=== PATIENT | female | born 1975 | race Caucasian/White ===

== ENCOUNTER 2022-06-03 12:52 | Emergency (ER) | payer MEDICARE, BC, SELFPAY ==
[2022-06-03 13:21] VITALS: BP 113/79; PULSE 110; RESP 14; TEMP 37.1; O2SAT 94; BMI 18.5
--- NOTE | 2022-06-03 14:00 | CRLHL7_ITS ---
For Patients: As a result of the Cures Act, medical imaging exams and procedure reports are released immediately into your electronic medical record. You may view this report before your referring provider. If you have questions, please contact your health care provider. INDICATION: Fall, left anterior upper rib pain. COMPARISON: Chest and rib radiographs date 11/2020. TECHNIQUE: PA chest and left ribs, 4 images. FINDINGS: No focal consolidation, pleural effusion, or pneumothorax. Normal heart size and pulmonary vascularity. No displaced rib fracture identified. Chronic deformity of the distal left clavicle. IMPRESSION: 1. No acute cardiopulmonary findings. 2. No displaced rib fracture identified. Dictated by Lara Gallo MD @ 06/03/2022 2:38:46 PM (Electronically Signed)
--- NOTE | 2022-06-03 14:01 | ED_ITS ---
HPI - General Adult General Chief complaint: Rib Pain Stated complaint: broken ribs Time Seen by Provider: 06/03/22 13:15 History of Present Illness HPI narrative: This 46-year-old female comes in with left anterior rib pain. She states that she was leaning off of the edge of her bed trying to plug in her phone to charge it when she fell off of the bed and injured her left anterior ribs. She states that she has had rib fractures in the past because she has osteoporosis. She has been taking Fosamax but now has switched to IV treatment for her osteoporosis. She states that the pain was there initially and has worsened since then. Related Data Home Medications Medication Instructions Recorded Confirmed clonazepam 1 mg tablet mg 06/03/22 famotidine 20 mg tablet mg 06/03/22 fluoxetine 20 mg capsule mg 06/03/22 levothyroxine 25 mcg tablet mcg 06/03/22 quetiapine 100 mg tablet mg 06/03/22 trazodone 150 mg tablet mg 06/03/22 vaylar 06/03/22 Previous Rx's Medication Instructions Recorded ketorolac 10 mg tablet 10 mg PO TID 5 Days #15 tab 06/03/22 Allergies Allergy/AdvReac Type Severity Reaction Status Date / Time No Known Drug Allergies Allergy Verified 06/03/22 13:28 Review of Systems Status of ROS: Reports: 10 or more systems reviewed and unremarkable except as noted in History and below Narrative: Constitutional: No fevers, no weight gain or loss. Eyes: No discharge. No vision changes. HENT: No congestion, no sore throat, no ear pain. Cardiovascular: No palpitations. Left anterior rib pain as described above. Respiratory: No shortness of breath, no wheezes, no cough. Gastrointestinal: No abdominal pain, no vomiting, no diarrhea. Genitourinary: No dysuria, no hematuria. Musculoskeletal: Normal range of motion. Skin: No rashes, no pruritis. Neurological: No dizziness, weakness, sensory change, speech change. Endo/Heme/Allergies: No bruising or bleeding. No polydipsia. Pysch: no suicidality, no anxiety, no insomnia. All other systems reviewed and are negative. PFSH PFSH Social History Smoking Status: Former smoker Do you use any of these nicotine containing products: None Second hand tobacco smoke exposure: No How often do you have a drink containing alcohol: never How often do you have six or more drinks on one occasion: Never AUDIT-C Alcohol total score: 0 Non-prescribed substance use: denies use service: No Exam Narrative: Exam Narrative: Constitutional: Well-developed, well-nourished, no acute distress. HEENT: Normocephalic, atraumatic. Neck: Normal range of motion. Nontender. Supple. Heart: Regular. No murmurs. Normal rate. Intact distal pulses. Lungs: Clear to auscultation. No rhonchi, or rales. Left lateral anterior lower rib pain. There is no sign of external injury, that is no bruising or skin injury. Abdomen: Normal bowel sounds. Nontender. No rebound tenderness. Genitalia: Deferred. Back: No midline tenderness. Normal range of motion. Extremities: Normal range of motion. No injury. Skin: Intact. No rash. Warm. No erythema or pallor. Neurologic: No altered sensation. No weakness. Alert and oriented. Psychiatric: No suicidality. No anxiety or depression. No insomnia. Nursing notes and vitals signs are reviewed. Const: Vital Signs, click to edit/add: Vital Signs - 24 hr 06/03/22 13:21 06/03/22 15:08 Temperature 98.7 F Pulse Rate [Right Pulse Oximeter] 110 H 110 H Respiratory Rate 14 Blood Pressure [Ri ght Upper Arm] 113/79 84/54 L Pulse Oximetry 94 98 Course Vital Signs Vital signs: Initial Vital Signs Temperature 98.7 F 06/03/22 13:21 Temperature Source Temporal Artery Scan 06/03/22 13:21 Pulse Rate 110 H 06/03/22 13:21 Respiratory Rate 14 06/03/22 13:21 Blood Pressure 113/79 06/03/22 13:21 Blood Pressure Mean 90 06/03/22 13:21 Blood Pressure Position Sitting 06/03/22 13:21 Pulse Oximetry 94 06/03/22 13:21 Oxygen Delivery Method 06/03/22 13:21 Vital Signs Temperature 98.7 F 06/03/22 13:21 Pulse Rate 110 H 06/03/22 13:21 Respiratory Rate 14 06/03/22 13:21 Blood Pressure 113/79 06/03/22 13:21 Pulse Oximetry 94 06/03/22 13:21 Temperature 98.7 F 06/03/22 13:21 Pulse Rate 110 H 06/03/22 15:08 Respiratory Rate 14 06/03/22 13:21 Blood Pressure 84/54 L 06/03/22 15:08 Pulse Oximetry 98 06/03/22 15:08 Medical Decision Making MDM Narrative Medical decision making narrative: This patient comes in with rib pain as described above. X-ray of the chest and detail of the left ribs shows no sign of fracture or pneumothorax. The patient received a rib belt which brought some relief. Additionally she received a prescription for Toradol. Imaging Data Chest x-ray: Radiologist's impression: 1. No acute cardiopulmonary findings. 2. No displaced rib fracture identified. Discharge Plan Discharge Clinical Impression: Acute chest wall pain Patient Disposition: Home, Self-Care Condition: Unchanged Instructions: Chest Wall Pain (ED) Additional Instructions: Rib contusion. Take medication as needed and indicated. Wear rib belt also has preferred. Follow up with MD as needed. Prescriptions: New ketorolac 10 mg tablet 10 mg PO TID 5 Days Qty: 15 0RF No Action clonazepam 1 mg tablet 0RF Label Comments: TAKE 1 TABLET BY MOUTH TWICE A DAY AND TAKE 1/2 TABLET TWICE A DAY quetiapine 100 mg tablet 0RF Label Comments: TAKE 1/2 TAB TWICE A DAY AND TAKE 1 TAB AT NIGHT. MAY TAKE AN ADDITIONAL 1/2 TWICE DAILY NEEDED levothyroxine 25 mcg tablet 0RF Label Comments: TAKE 1 TABLET (25 MCG) BY MOUTH BEFORE BREAKFAST. famotidine 20 mg tablet 0RF Label Comments: TAKE 1 TABLET (20 MG) BY MOUTH IN THE MORNING AND 1 TABLET (20 MG) IN THE EVENING. trazodone 150 mg tablet 0RF Label Comments: TAKE 2 TABLETS BY MOUTH DAILY AT BEDTIME NEEDED fluoxetine 20 mg capsule 0RF Label Comments: TAKE 2 CAPSULE (40MG) BY MOUTH DAILY vaylar 0RF Follow Up/Referrals: Milana Winter MD [Primary Care Provider] - Stand Alone Forms: [employer] Info Instructions
[2022-06-03 15:08] VITALS: BP 84/54; PULSE 110; O2SAT 98
== END 2022-06-03 15:40 | disposition home or self-care (01) ==
PROVIDERS: Emergency Provider Emergency Medicine Emergency Medical Services; PCP Family Medicine
DX: R07.89 Other chest pain (principal)
CPT/HCPCS: 71101; 99283; 99284

== ENCOUNTER 2024-05-03 07:17 | Outpatient (CLI) | payer MEDICARE, BC, SELFPAY ==
--- NOTE | 2024-05-03 08:37 | W.ANESCHARGE ---
Anesthesia Charges Start Date/Time Anesthesia Start Date: 05/03/24 Anesthesia Start Time: 08:12 Stop Date/Time Anesthesia Stop Date: 05/03/24 Anesthesia Stop Time: 08:33
--- NOTE | 2024-05-03 10:04 | W.ANESCHARGE ---
Anesthesia Charges Start Date/Time Anesthesia Start Date: 05/03/24 Anesthesia Start Time: 08:12 Stop Date/Time Anesthesia Stop Date: 05/03/24 Anesthesia Stop Time: 08:33
== END 2024-05-03 07:18 | disposition home or self-care (01) ==
LOC: OP CLINIC 07:18
PROVIDERS: PCP Family Medicine; Visit Provider Internal Medicine Gastroenterology
DX: R13.10 Dysphagia, unspecified (principal); K22.89 Other specified disease of esophagus; K22.4 Dyskinesia of esophagus
CPT/HCPCS: 00731; 43239; 88305; 88341; 88342; J2704; J3010

== ENCOUNTER 2025-03-03 17:29 | Outpatient (CLI) | payer MEDICARE, BC, SELFPAY | END 2025-03-03 17:30 | disposition home or self-care (01) | PROVIDERS: PCP Family Medicine; Visit Provider Nurse Practitioner Family | DX: R53.1 Weakness (principal); R53.83 Other fatigue; Z79.899 Other long term (current) drug therapy | CPT/HCPCS: 82306; 86618 ==

== ENCOUNTER 2025-08-29 17:01 | Outpatient (CLI) | payer MEDICARE, BC, SELFPAY ==
[2025-08-29 18:17] LABS: PCR FLU A Negative PCR FLU A (Negative); PCR FLU B Negative PCR FLU B (Negative); SARS PCR* Negative SARS-CoV-2 (Negative)
== END 2025-08-29 17:02 | disposition home or self-care (01) ==
PROVIDERS: PCP Family Medicine; Visit Provider Physician Assistant Surgical
DX: R50.9 Fever, unspecified (principal)
CPT/HCPCS: 87636

== ENCOUNTER 2025-08-30 13:26 | Outpatient (CLI) | payer MEDICARE, BC, SELFPAY | END 2025-08-30 13:27 | disposition home or self-care (01) | LOC: NFLDREF 09-19 08:28 | PROVIDERS: PCP Family Medicine; Referring Provider Family Medicine; Visit Provider Physician Assistant Surgical | DX: R68.89 Other general symptoms and signs (principal) | CPT/HCPCS: 87507 ==